=== PATIENT | female | born 1995 | race American Indian/Alaskan Native ===

== ENCOUNTER 2017-05-06 23:58 | Emergency (ER) | payer SELFPAY ==
[2017-05-06 23:59] VITALS: BMI 22.8
[2017-05-07 00:04] VITALS: BP 142/100; PULSE 108; RESP 16; TEMP 98; O2SAT 100
== END 2017-05-07 01:50 | disposition left against medical advice (07) ==
LOC: H.ER 23:58
DX: Z02.89 Encounter for other administrative examinations (principal)